=== PATIENT | female | born 1995 | race Native Hawaiian/Other Pacific Islander ===

== ENCOUNTER 2022-11-13 13:16 | Outpatient (CLI) | payer OTHER, SELFPAY | END 2022-11-13 13:17 | disposition home or self-care (01) | LOC: NFLDREF 13:18 | PROVIDERS: Visit Provider Physician Assistant | DX: N92.6 Irregular menstruation, unspecified (principal); E66.9 Obesity, unspecified; Z13.6 Encounter for screening for cardiovascular disorders | CPT/HCPCS: 80061; 84443 ==